=== PATIENT | male | born 1940 | race Caucasian/White ===

== ENCOUNTER 2021-05-14 17:33 | Outpatient (CLI) | payer MEDICARE, OTHER, SELFPAY ==
[2021-05-14 17:45] VITALS: BP 128/62; PULSE 86; RESP 16; TEMP 36.8; O2SAT 98; BMI 22.8
[2021-05-14] MEDS: 0.9% Saline Lock 10 ML Syringe IV (17:46)
[2021-05-14 18:15] VITALS: BP 115/65; PULSE 80; RESP 16; TEMP 36.7; O2SAT 98
[2021-05-14 19:04] VITALS: BP 136/74; PULSE 74; RESP 16; TEMP 36.7; O2SAT 98
== END 2021-05-14 19:15 | disposition home or self-care (01) ==
LOC: MS3OUT 17:34 → MS3 17:35
PROVIDERS: PCP Family Medicine; Referring Provider Nurse Practitioner Adult Health; Visit Provider Nurse Practitioner Adult Health
DX: Z23 Encounter for immunization (principal); U07.1 COVID-19
CPT/HCPCS: J7050; M0243; A4216; Q0244